=== PATIENT | female | born 1975 | race Caucasian/White ===

== ENCOUNTER 2019-11-15 21:33 | Inpatient (IN) | payer BC ==
[~2019-11-15] VITALS: Ht 177.8 cm; Wt 96.0 kg
[2019-11-15] MEDS ORDERED: ONDANSETRON 2MG/ML, 2ML ONE ×2 (21:52→23:56)
[2019-11-15] MEDS ORDERED: MORPHINE SULFATE 4 MG/ML, 1ML ONE ×2 (21:53→22:27)
[2019-11-15] MEDS ORDERED: ASPIRIN 81 MG TABLET CHEW ONE (21:54)
[2019-11-15] MEDS ORDERED: ASPIRIN 81 MG TABLET CHEW PO ONE (22:00)
[2019-11-15] MEDS ORDERED: ONDANSETRON 2MG/ML, 2ML IVPush ONE (22:00)
[2019-11-15] MEDS ORDERED: NITROGLYCERIN SINGLE TAB 0.4 MG SL PRN (22:00)
[2019-11-15] MEDS ORDERED: MORPHINE SULFATE 4 MG/ML, 1ML IVPush PRN (22:00)
--- NOTE | 2019-11-15 22:05 | NUR ---
placed on monitoring specialist repeat ecg obtained piv placed from which labs were drawn medicated per emar with morphine for chest pain at 10/10, zofran for nausea and aspirin for presumed cardiac chest pain cxr at bedside
[2019-11-15 22:19] LABS: BASOPHILS # (AUTO) 0.04 x10^3/uL (0-0.1); BASOPHILS % (AUTO) 1 % (0-1); EOSINOPHILS % (AUTO) 3 % (1-7); LYMPHOCYTES # (AUTO) 2.65 x10^3/uL (1-3.4); LYMPHOCYTES % (AUTO) 29 % (22-44); MD NO; MEAN CORPUSCULAR HEMOGLOBIN 31.3 pg (27.0-34.8); MEAN CORPUSCULAR HGB CONC 33.9 g/dL (32.4-35.8); MEAN CORPUSCULAR VOLUME 92.1 fL (80-100); MEAN PLATELET VOLUME 7.2 fL (7.4-10.4); MONOCYTES # (AUTO) 0.58 x10^3/uL (0.2-0.8); MONOCYTES % (AUTO) 6 % (2-9); NEUTROPHILS # (AUTO) 5.55 x10^3/uL (1.8-6.8); NEUTROPHILS % (AUTO) 61 % (42-75); PLATELET COUNT 325 x10^3/uL (130-400); RED BLOOD COUNT 4.93 x10^6/uL (3.82-5.3); RED CELL DISTRIBUTION WIDTH 12.9 % (9.6-15.2)
[2019-11-15 22:25] LABS: ALBUMIN 3.8 g/dL (3.4-5.0); ANION GAP 5 mmol/L (5-15); CALCIUM 9.1 mg/dL (8.5-10.1); CHLORIDE 107 mmol/L (98-107); CREATININE 0.89 mg/dL (0.55-1.02)
[2019-11-15 22:35] LABS: TROPONIN I 0.966 ng/mL (0.000-0.045)
[2019-11-15] MEDS ORDERED: HYDROmorphone 1 MG/ML, 1ML INJ ONE (22:36)
--- NOTE | 2019-11-15 22:39 | NUR ---
PAIN REBOUNDED TO 10/10. PATIENT REFUSING NITROGLYCERIN. PROVIDER MADE AWARE MEDICATED WITH DILAUDID RECEIVED CRITICAL LAB VALUE FROM LAB: TROPONIN 0.966
[2019-11-15] MEDS ORDERED: PANT40TA3 PO (22:48)
[2019-11-15] MEDS ORDERED: ASPI-496 PO (22:48)
[2019-11-15] MEDS ORDERED: CLOP75TA52 PO (22:48)
[2019-11-15] MEDS ORDERED: METO25TA91 PO (22:48)
[2019-11-15] MEDS ORDERED: ATOR-2 PO (22:48)
[2019-11-15] MEDS ORDERED: ONDA4TAB13 SL (22:48)
[2019-11-15] MEDS ORDERED: ALBU8.5H8 INH (22:52)
[2019-11-15] MEDS ORDERED: MOME13HF INH (22:52)
--- NOTE | 2019-11-15 22:53 | NUR ---
PAIN IMPROVED TO 1/10 VSS ON CHUMMER REPORT TO HALI SCHWARZ
[2019-11-15] MEDS ORDERED: LABETALOL 5MG/ML, 20ML IVPush ONE (23:00)
[2019-11-15] MEDS ORDERED: HYDROmorphone 1 MG/ML, 1ML INJ IVPush PRN (23:00)
[2019-11-15] MEDS ORDERED: LABETALOL 5MG/ML, 20ML ONE (23:01)
--- NOTE | 2019-11-15 23:09 | NUR ---
PT MEDICATED PER MAR. PT TO CT
[2019-11-15] MEDS ORDERED: OMNIPAQUE 350 MG/ML, 75ML BOTTLE ONE (23:28)
--- NOTE | 2019-11-15 23:41 | NUR ---
PT RESTING ON GURNEY, MONITORS IN PLACE, SIDERAILS UP X2, CALL LIGHT WITHIN REACH. PROVIDED PT WITH LEMON MOUTH SWABS, AWAITING CT RESULT
[2019-11-15] MEDS ORDERED: HEPARIN 25,000 UNITS/250ML PMX 250 ML IV PRN (23:45)
[2019-11-15] MEDS ORDERED: HEPARIN 5,000 UNITS/ML, 1ML IV ONE (23:45)
[2019-11-15] MEDS ORDERED: HEPARIN 5,000 UNITS/ML, 1ML IV PRN (23:45)
[2019-11-16] MEDS ORDERED: HEPARIN 25,000 UNITS/250ML PMX 250 ML ONE (00:04)
[2019-11-16] MEDS ORDERED: HEPARIN 5,000 UNITS/ML, 1ML ONE (00:05)
[2019-11-16] MEDS ORDERED: ONDANSETRON 2MG/ML, 2ML IVPush ONE (00:30)
--- NOTE | 2019-11-16 00:50 | NUR ---
CALLED PHARMACY TO ENSURE HEPARIN DOSE REMAINS UNCHANGED AFTER OBTAINING ACCURATE WEIGHT ON PT. PER LILLIAN IN PHARMACY DOSE REMAINS THE SAME BECAUSE OF PT. HEIGHT.
[2019-11-16] MEDS ORDERED: ENALAPRILAT 1.25 MG/ML, 2ML IVPush PRN (01:00)
[2019-11-16] MEDS ORDERED: BISACODYL 10 MG SUPP PR PRN (01:00)
[2019-11-16] MEDS ORDERED: PROMETHAZINE 25 MG/ML, 1ML IM PRN (01:00)
[2019-11-16] MEDS ORDERED: morphine SULFATE 10 MG/ML, 1ML IVPush PRN (01:00)
[2019-11-16] MEDS ORDERED: LABETALOL 5MG/ML, 20ML IVPush PRN (01:00)
[2019-11-16] MEDS ORDERED: ONDANSETRON 2MG/ML, 2ML IVPush PRN (01:00)
[2019-11-16] MEDS ORDERED: ONDANSETRON ODT 4 MG PO PRN (01:30)
[2019-11-16 01:41] VITALS: BP 141/89
[2019-11-16] MEDS ORDERED: ALBUTEROL SULFATE 2.5 MG/3 ML NPPB PRN (02:00)
[2019-11-16 05:04] LABS: ANION GAP 6 mmol/L (5-15); CALCIUM 8.6 mg/dL (8.5-10.1); CHLORIDE 112 mmol/L (98-107); CHOLESTEROL, TOTAL 102 mg/dL (140-239); CREATININE 0.62 mg/dL (0.55-1.02); TRIGLYCERIDES 71 mg/dL (50-200); VLDL CHOLESTEROL 14 mg/dL (0-25)
[2019-11-16 05:09] LABS: CHOL/HDL RATIO 2.1; HDL CHOL % 47 % (28-40); HDL CHOLESTEROL (DIRECT) 48 mg/dL (40-60); LDL CHOLESTEROL,CALCULATED 40 mg/dL (54-169); LDL/HDL RATIO 0.8 (0.5-3.0)
[2019-11-16 05:30] VITALS: BP_SYST 124; BP_SYST 134; BP_DIAS 84; BP_DIAS 87
[2019-11-16] MEDS ORDERED: NITROGLYCERIN OINT 2%, 1GM TP SCH (05:30)
[2019-11-16 05:59] LABS: BASOPHILS # (AUTO) 0.03 x10^3/uL (0-0.1); BASOPHILS % (AUTO) 0 % (0-1); EOSINOPHILS # (AUTO) 0.06 x10^3/uL (0-0.4); EOSINOPHILS % (AUTO) 1 % (1-7); LYMPHOCYTES # (AUTO) 1.41 x10^3/uL (1-3.4); LYMPHOCYTES % (AUTO) 12 % (22-44); MD NO; MEAN CORPUSCULAR HEMOGLOBIN 30.5 pg (27.0-34.8); MEAN CORPUSCULAR HGB CONC 33.8 g/dL (32.4-35.8); MEAN CORPUSCULAR VOLUME 90.2 fL (80-100); MEAN PLATELET VOLUME 7.4 fL (7.4-10.4); MONOCYTES # (AUTO) 0.47 x10^3/uL (0.2-0.8); MONOCYTES % (AUTO) 4 % (2-9); NEUTROPHILS # (AUTO) 9.61 x10^3/uL (1.8-6.8); NEUTROPHILS % (AUTO) 83 % (42-75); PLATELET COUNT 271 x10^3/uL (130-400); RED CELL DISTRIBUTION WIDTH 12.9 % (9.6-15.2)
[2019-11-16] MEDS ORDERED: NITROGLYCERIN OINT 2%, 1GM TP PRN (06:00)
[2019-11-16] MEDS: ACETAMINOPHEN 325 MG TABLET PO PRN (06:08)
[2019-11-16 06:59] VITALS: BP 129/81
[2019-11-16] MEDS: SENNA/DOCUSATE TABLET PO SCH (08:48)
[2019-11-16] MEDS: ASPIRIN 81 MG TABLET EC PO SCH (08:49)
[2019-11-16] MEDS: PANTOPRAZOLE 40MG TABLET PO SCH (08:49)
[2019-11-16] MEDS: CLOPIDOGREL 75 MG TABLET PO SCH (08:49)
[2019-11-16] MEDS ORDERED: METOPROLOL SUCCINATE 25 MG TAB.ER.24H PO SCH (09:00)
[2019-11-16] MEDS ORDERED: SODIUM CHLORIDE 0.9% 1,000 ML IV SCH ×2 (12:00→15:30)
[2019-11-16 13:51] VITALS: BP 134/89
[2019-11-16] MEDS ORDERED: MIDAZOLAM 1 MG/ML, 5ML ONE (14:41)
[2019-11-16] MEDS ORDERED: FENTANYL PF 100 MCG/2ML ONE (14:41)
[2019-11-16] MEDS ORDERED: LIDOCAINE-MPF 1%, 5ML ONE (14:42)
[2019-11-16] MEDS ORDERED: BIVALIRUDIN 250 MG ONE (14:42)
[2019-11-16] MEDS ORDERED: VERAPAMIL 2.5 MG/ML, 2ML ONE (14:42)
[2019-11-16] MEDS ORDERED: TICAGRELOR 90 MG TABLET ONE (14:42)
[2019-11-16] MEDS ORDERED: HEPARIN 1,000 UNITS/ML, 10ML ONE (14:42)
[2019-11-16] MEDS ORDERED: DIPHENHYDRAMINE 50 MG/ML, 1ML ONE (15:45)
[2019-11-16] MEDS: SODIUM CHLORIDE 0.9% 1,000 ML IV SCH ×2 (17:45→21:09)
[2019-11-16 19:43] VITALS: BP 138/85
[2019-11-16] MEDS ORDERED: ATORVASTATIN 20 MG TABLET PO SCH (21:00)
[2019-11-17 00:04] VITALS: BP 147/95
[2019-11-17 05:53] LABS: ANION GAP 7 mmol/L (5-15); CALCIUM 8.3 mg/dL (8.5-10.1); CHLORIDE 111 mmol/L (98-107); CREATININE 0.64 mg/dL (0.55-1.02)
[2019-11-17 06:23] VITALS: BP 146/95
[2019-11-17] MEDS ORDERED: METOPROLOL TARTRATE 25 MG TAB PO SCH (07:30)
[2019-11-17] MEDS: ACETAMINOPHEN 325 MG TABLET PO PRN (08:03)
[2019-11-17] MEDS: PANTOPRAZOLE 40MG TABLET PO SCH (08:03)
[2019-11-17] MEDS: SENNA/DOCUSATE TABLET PO SCH (08:03)
[2019-11-17] MEDS: CLOPIDOGREL 75 MG TABLET PO SCH (08:03)
[2019-11-17] MEDS: ASPIRIN 81 MG TABLET EC PO SCH (08:03)
[2019-11-17] MEDS ORDERED: CLOP75TA52 PO (11:00)
[2019-11-17] MEDS ORDERED: ATOR20TA37 PO (11:00)
[2019-11-17] MEDS ORDERED: METO25TA35 PO (11:00)
[2019-11-17 12:18] VITALS: BP 139/91
== END 2019-11-17 13:17 | disposition left against medical advice (07) | DRG 280 ==
LOC: ED 23:40 → EDIP 23:58 → 5SO 11-16 01:19
PROVIDERS: ADMIT Family Medicine; ATTEND Hospitalist
PROC: 4A023N7 Measurement of Cardiac Sampling and Pressure, Left Heart, Percutaneous Approach (ICD-10-PCS; principal; 2019-11-16)
PROC: B2111ZZ Fluoroscopy of Multiple Coronary Arteries using Low Osmolar Contrast (ICD-10-PCS; 2019-11-16)
PROC: B2151ZZ Fluoroscopy of Left Heart using Low Osmolar Contrast (ICD-10-PCS; 2019-11-16)
DX: I21.4 Non-ST elevation (NSTEMI) myocardial infarction (principal); I50.21 Acute systolic (congestive) heart failure; I25.42 Coronary artery dissection; D72.829 Elevated white blood cell count, unspecified; E78.5 Hyperlipidemia, unspecified; I11.0 Hypertensive heart disease with heart failure; I25.10 Atherosclerotic heart disease of native coronary artery without angina pectoris; I72.3 Aneurysm of iliac artery; J45.909 Unspecified asthma, uncomplicated; G43.909 Migraine, unspecified, not intractable, without status migrainosus; I49.3 Ventricular premature depolarization; Z79.02 Long term (current) use of antithrombotics/antiplatelets; Z82.49 Family history of ischemic heart disease and other diseases of the circulatory system; Z86.73 Personal history of transient ischemic attack (TIA), and cerebral infarction without residual deficits
CPT/HCPCS: 36415; 71045; 71275; 74175; 80048; 80061; 82040; 83735; 83880; 84484; 84703; 85025; 85520; 93005; 93306; 93356; 93458; 96374; 96375; 99156; 99285; C1769; C1894; G0378; J0583; J1170; J1644; J2250; J2405; J2550; J3010; Q0162; Q9967; J1200; J2270; J7030